=== PATIENT | female | born 2000 | race Caucasian/White ===

== ENCOUNTER 2022-12-01 22:41 | Emergency (ER) | payer SELFPAY ==
[~2022-12-01] VITALS: Ht 165.1 cm; Wt 60.0 kg
[2022-12-01] MEDS ORDERED: SODIUM CHLORIDE 0.9% 1,000 ML IV ONE (23:00)
[2022-12-01 23:42] LABS: BASOPHILS % 0.6 % (0.0-2.0); EOSINOPHILS % 0.3 % (0.0-5.0); HEMATOCRIT. 33.9 % (36.0-48.0); HEMOGLOBIN. 11.4 g/dL (12.0-16.0); LYMPHOCYTES % 26.7 % (20.0-50.0); MEAN CORPUSCULAR HEMOGLOBIN 28.8 pg (28.0-32.0); MEAN CORPUSCULAR VOLUME 85.5 fL (81.0-99.0); MEAN PLATELET VOLUME 8.4 fl (7.4-10.4); NEUTROPHILS % 63.4 % (40.0-76.0); PLATELET 261 x1000/uL (130-400); RED BLOOD CELL COUNT 3.97 mill/uL (4.2-5.4); RED CELL DISTRIBUTION WIDTH 12.9 % (11.6-14.6)
[2022-12-02 00:04] LABS: HCG SCREEN NEGATIVE
[2022-12-02 00:07] LABS: CHLORIDE 106 mEq/L (98-107)
[2022-12-02 00:18] LABS: ETHANOL BLOOD 207 mg/dL
[2022-12-02] MEDS ORDERED: POTASSIUM CHLORIDE 20MEQ/PACKET PO NR ×2 (00:45)
[2022-12-02 02:15] VITALS: BP 93/59
== END 2022-12-02 02:49 | disposition home or self-care (01) ==
LOC: ER 22:41
DX: F10.129 Alcohol abuse with intoxication, unspecified (principal); Y90.7 Blood alcohol level of 200-239 mg/100 ml; E87.6 Hypokalemia
CPT/HCPCS: 36415; 80053; 80320; 83690; 84703; 85025; 96360; 99283; J7030; G0480